=== PATIENT | female | born 1980 | race Hispanic/Latino ===

== ENCOUNTER 2024-03-20 16:48 | Emergency (ER) | payer OTHER, SELFPAY ==
[2024-03-20 16:57] VITALS: BP 88/77
--- NOTE | 2024-03-20 17:53 | ED.SKININJ ---
HPI-Injury
General
Chief Complaint: Bite
Source: patient
Exam Limitations: none
Time Seen by Provider: 03/20/24 17:24
Nursing documentation reviewed up to this point in time: agreed with
History of Present Illness-Injury
Initial Injury comments:
43 yo female was bitten by her friends dog about an hour STRAP CUTTER. Dog is UTD with immunizations, was acting normally. Pt unsure of last dT.
Pt denies numbness or weakness distal to bite.
Past History
Past History
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
ED Past Surgical History: Appendectomy and Tonsilectomy
Social History
Tobacco: Smoker
Alcohol: None
Personal: Single
Living: with family
Employment: Employed
Review of Systems
Review of Systems
Allergies reviewed?: Yes
All Other Systems: ROS reviewed and negative except as documented in HPI and ROS
Skin: Reports other (dog bites right hand )
Neurological: Denies weakness or numbness
Skin Exam
Bite
R hand dorsum over 3,4,5th prox metacarpals:
Type: animal
Skin has: full thickness laceration (3 puncture wounds, one 7 mm closed with one 4-0 nulon suture)
Laceration length in cm: 6
Surrounding area around bite has: no evidence of erythema
Distal skin color and temperature: normal-warm & good color
Normal distal neurovascular exam: Yes
Phy Exam
Physical Exam
Physical Exam:
PHYSICAL EXAMINATION:
General: no apparent distress, not acutely ill
Neuro: alert and oriented. Good sensation to all fingers distal to wound
Psychiatric: well kept. interactive and cooperative
Musculoskeletal: Moves with ease, all extensor and flexor tendon function intact
Skin: Warm, pink.
Course
Orders/Labs/Results
Orders:
Orders
03/20/24 17:53
CeFAZolin SODIUM [Ancef] 1,000 mg IM NOW STA
Vital Signs
Initial and Last Documented VS:
Initial Vital Signs
Temp Pulse Resp BP Pulse Ox
97.8 F 70 18 99
03/20/24 16:57 03/20/24 16:57 03/20/24 16:57 03/20/24 16:57 03/20/24 16:57
Last Documented Vital Signs
Temp Pulse Resp BP Pulse Ox
97.8 F 70 18 99
03/20/24 16:57 03/20/24 16:57 03/20/24 16:57 03/20/24 16:57 03/20/24 16:57
Procedures
Laceration Closure
R hand dorsum over 3,4,5th prox metacarpals:
Status of Wound: clean and bite
Description of Wound Edges: flap-well vascularized
Preparation: cleaned with saline
Anesthesia: 1% Lidocaine with epi
Revision/Debridement: routine- no revision and irrigate-direct pressure
Wound exploration: explored to base- no FB and no tendon involvement
Type of Closure: single layer closure and interrupted sutures
Skin Closure Material: 4-0 nylon
Number of sutures: 7
Additional information:
nonstick and gauze dressing applied
MDM/Problems Addressed
MDM/Problems Addressed:
43 yo female was bitten by her friends dog about an hour STRAP CUTTER. Dog is UTD with immunizations, was acting normally. Pt unsure of last dT.
Pt denies numbness or weakness distal to bite.
*Critical Care Note
Total Time (30-74mins, 75-104mins- exclusive of procedures): Not Applicable
ED Attending Note
-
Portions of this chart may have been created with voice recognition software.� Occasional wrong word or��sound alike� substitutions may have occurred due to the inherent limitations of voice recognition software.
Discharge Plan
Departure
Patient Disposition: Home (Routine Discharge)
Date of Disposition: 11/15/24
Time of Disposition: 18:05
Patient with high blood pressure during this ER visit?: No
Condition: Good
Discharge Problem:
Dog bite of right hand
Instructions: Animal Bites (DC), Laceration Repair With Stitches (DC)
Prescriptions:
New
cephalexin 500 mg capsule
500 mg PO QID 7 Days Qty: 28 0RF
No Action
tramadol 50 MG tablet
50 mg PO Q6HPRN PRN (Reason: severe pain) Qty: 12 0RF
Referrals:
Your, Primary Doctor [Other] - Follow up in 2-3 days
NONE,* [Active] -
Activity Restrictions/Additional Instructions:
As we discussed, changed the dressing in 2 days. Wash the hand with soap and water as usual, apply antibiotic ointment and non stick and gauze dressing. Change dressing daily after that.
Seek medical care IMMEDIATELY for signs of infection which may include increasing pain, redness, swelling, fever, pus drainage, red streak up the arm.
I sent a prescription to your [facility] pharmacy for the antibiotic Keflex to take 4 times a day for 7 days.
Have the sutures removed in 10-12 days.
Interventions
Interventions:
*Risk Screen - Suicide Last Done: 03/20/24 18:29
*General Assessment Last Done: 03/20/24 18:29
*Neglect/Abuse Screening Last Done: 03/20/24 18:29
*Nursing Disposition Last Done: 03/20/24 18:29
ED-Skin Assessment Last Done: 03/20/24 18:29
Discharge Date and Time
Discharge Date/Time: 03/20/24 18:33
Print Language: ESTONIAN
[2024-03-20] MEDS: ANCEF 1000 MG IM (18:16)
== END 2024-03-20 18:33 | disposition home or self-care (01) ==
LOC: EMR 16:48
PROVIDERS: EMERGENCY PHYSICIAN Emergency Medicine; FAMILY PHYSICIAN Nurse Practitioner Family
DX: S61.451A Open bite of right hand, initial encounter (principal); W54.0XXA Bitten by dog, initial encounter; F17.200 Nicotine dependence, unspecified, uncomplicated
CPT/HCPCS: 99284; 12002; 96372